=== PATIENT | female | born 2000 | race African-American/Black ===

== ENCOUNTER 2023-12-05 00:45 | Emergency (ER) | payer OTHER ==
[~2023-12-05] VITALS: Ht 180.3 cm; Wt 92.4 kg
[2023-12-05 01:03] VITALS: BP 116/63; PULSE 78; RESP 16; O2SAT 98
[2023-12-05 01:48] LABS: Rapid Influenza A Negative (Negative); Rapid Influenza B Negative (Negative)
[2023-12-05 01:49] LABS: COVID19 ANTIGEN SOFIA FIA NEGATIVE (NEGATIVE)
[2023-12-05] MEDS ORDERED: PRED20TA2 PO (03:07)
[2023-12-05] MEDS ORDERED: ACET500T58 PO (03:07)
== END 2023-12-05 03:20 | disposition home or self-care (01) ==
LOC: ER 00:45
DX: J06.9 Acute upper respiratory infection, unspecified (principal); Z20.822 Contact with and (suspected) exposure to COVID-19
CPT/HCPCS: 36415; 87426; 87804